=== PATIENT | male | born 1985 | race African-American/Black ===

== ENCOUNTER 2021-11-24 23:02 | Emergency (ER) | payer MEDICAID ==
[~2021-11-24] VITALS: Ht 175.3 cm; Wt 70.4 kg
[2021-11-25] MEDS ORDERED: LIDOCAINE 1%/EPI 1:100,000 20 ML VIAL. INJ ONE (00:45)
[2021-11-25] MEDS ORDERED: SULF1TAB24 PO (00:50)
--- NOTE | 2021-11-25 00:51 | PHYS DOC ---
General Adult EDM: Chief Complaint: ABSCESS HPI: HPI: Patient is a 36 year old male who presents with 3 days of a right cheek ingrown hair that is the size a little smaller than a dime. He rates his pain a 4 out of 10. He denies fever, nausea, vomiting, diarrhea, headache, swelling or redness. He states he has had many ingrown hairs in the past. He has not taken any medications for this. Review of Systems: Review of Systems: Constitutional: Denies fever or chills. [] Eyes: Denies change in visual acuity. [] HENT: Denies nasal congestion or sore throat. + Right cheek pain [] Respiratory: Denies cough or shortness of breath. [] Cardiovascular: Denies chest pain or edema. [] GI: Denies abdominal pain, nausea, vomiting, bloody stools or diarrhea. [] : Denies dysuria. [] Musculoskeletal: Denies back pain or joint pain. [] Integument: Denies rash. + Right cheek abscess [] Neurologic: Denies headache, focal weakness or sensory changes. [] Endocrine: Denies polyuria or polydipsia. [] Lymphatic: Denies swollen glands. [] Psychiatric: Denies depression or anxiety. [] Heart Score: C/O Chest Pain: No Physical Exam: PE: Constitutional: Well developed, well nourished, no acute distress, non-toxic appearance. [] HENT: Normocephalic, atraumatic, bilateral external ears normal, oropharynx moist, no oral exudates, nose normal. [] Eyes: PERRLA, EOMI, conjunctiva normal, no discharge. [] Neck: Normal range of motion, no tenderness, supple, no stridor. [] Cardiovascular:Heart rate regular rhythm, no murmur [] Lungs & Thorax: Bilateral breath sounds clear to auscultation [] Abdomen: Bowel sounds normal, soft, no tenderness, no masses, no pulsatile masses. [] Skin: Warm, dry, no erythema, no rash. Small less than a dime sized abscess to the right cheek without cellulitis. [] Back: No tenderness, no CVA tenderness. [] Extremities: No tenderness, no cyanosis, no clubbing, ROM intact, no edema. [] Neurologic: Alert and oriented X 3, normal motor function, normal sensory function, no focal deficits noted. [] Psychologic: Affect normal, judgement normal, mood normal. [] EKG: EKG: [] Radiology/Procedures: Radiology/Procedures: [] Course & Med Decision Making: Course & Med Decision Making Pertinent Labs and Imaging studies reviewed. (See chart for details) See HPI. Alert and oriented x4. Ambulatory steady gait. Speaks in full clear sentences. Right cheek slightly smaller than dime sized ingrown hair with a garza on it. I&D Location: Right mid lower cheek, slightly smaller than dime size circular, soft abscess Anesthesia: 1% lidocaine Scalpel size: 20-gauge needle Skin: Within normal limits and without cellulitis Drainage: Scant amount of white drainage Packing: None Patient tolerated the procedure well with no complications. The area was prepped and draped in usual sterile fashion. Area was cleaned with chloehexidine prior to procedure. Return for signs and symptoms of infection education given. Patient to return in 48 hours for wound recheck. [] Xiomara Disclaimer: Xiomara Disclaimer: This electronic medical record was generated, in whole or in part, using a voice recognition dictation system. Departure Departure Impression: Primary Impression: Abscess Disposition: HOME / SELF CARE / HOMELESS Condition: STABLE Referrals: NO PCP (PCP) Patient Instructions: Abscess, Abscess, Care After Additional Instructions: Take antibiotic as prescribed and with food. Use a warm compress to help with any kind of pain. Take ibuprofen for any type of pain. Follow-up with a primary care physician or collet making machine operator if it does not get better. Scripts Sulfamethoxazole/Trimethoprim (BACTRIM DS TABLET) 1 Each Tablet 1 TAB PO BID for 10 Days, #20 TAB 0 Refills Prov: ITZEL SANCHES APRN 11/25/21 ITZEL SANCHES APRN Nov 25, 2021 00:51
[2021-11-25 01:00] VITALS: BP 130/89
== END 2021-11-25 01:18 | disposition home or self-care (01) ==
LOC: ER 23:02
DX: L02.01 Cutaneous abscess of face (principal)
CPT/HCPCS: 10060; 99283; J3490; 96372